=== PATIENT | female | born 1975 | race Caucasian/White ===

== ENCOUNTER → 2020-05-07 | Outpatient (CLI) | payer OTHER ==
--- NOTE | 2020-05-07 16:45 | REP ---
INDICATION: MODERATE PERSISTENT ASTHMA, WHEEZING COMPARISON: None. TECHNIQUE: PA and lateral. FINDINGS: The mediastinum and cardiac silhouette are normal. The lung rader are clear and without acute consolidation, effusion, or pneumothorax. The skeletal structures are intact and normal. IMPRESSION: No acute cardiopulmonary process. <Electronically signed by Jd Sheriff > 05/07/20 [id number]
== END ==
LOC: M RAD 16:16
PROVIDERS: ATTEND Nurse Practitioner Family
DX: J45.40 Moderate persistent asthma, uncomplicated (principal)

== ENCOUNTER → 2020-06-15 | Outpatient (REF) | payer MEDICAID, OTHER ==
[2020-06-15 12:55] LABS: APPEARANCE, URINE CLEAR (CLEAR); BACTERIA, URINE AUTO 1+ (NEGATIVE); BILIRUBIN, URINE AUTO NEGATIVE (NEGATIVE); BLOOD, URINE BLOOD NEGATIVE (NEGATIVE); COLOR, URINE STRAW (YELLOW); GLUCOSE, URINE (UA) AUTO NEGATIVE (NEGATIVE); KETONE, URINE AUTO NEGATIVE (NEGATIVE); LEUKOCYTE ESTERASE, URINE AUTO NEGATIVE (NEGATIVE); NITRITE, URINE AUTO NEGATIVE (NEGATIVE); PROTEIN, URINE AUTO NEGATIVE (NEGATIVE); RBC, URINE AUTO 0 /HPF (0-3); SPECIFIC GRAVITY URINE AUTO 1.003 (1.002-1.035); SQUAMOUS EPITHELIAL CELL UR AU 1 /HPF (0-6); UROBILINOGEN, URINE AUTO 0.2 mg/dL (0.0-2.0); WBC, URINE AUTO 0 /HPF (0-3)
[2020-06-15 14:11] LABS: BASO % 0.3 % (0.0-1.0); EOS # 0.2 10^3/uL (0.0-0.5); EOS % 2.9 % (0.0-3.0); HEMATOCRIT 40.9 % (36.0-47.0); HEMOGLOBIN 12.8 g/dl (12.0-15.5); LYMPH # 1.9 10^3/uL (1.5-5.0); LYMPH % 25.4 % (24.0-44.0); MEAN CORPUSCULAR HEMOGLOBIN 29.8 pg (27.0-33.0); MEAN CORPUSCULAR HGB CONC 31.3 g/dl (32.0-36.5); MEAN CORPUSCULAR VOLUME 95.3 fl (80.0-96.0); MONO # 0.7 10^3/uL (0.0-0.8); MONO % 8.6 % (2.0-8.0); NEUTROPHILS # 4.7 10^3/uL (1.5-8.5); NEUTROPHILS % 62.4 % (36.0-66.0); RED BLOOD COUNT 4.29 10^6/uL (4.00-5.40); WHITE BLOOD COUNT 7.6 10^3/uL (4.0-10.0)
[2020-06-15 14:41] LABS: HEMOGLOBIN A1c 5.3 %
[2020-06-15 14:49] LABS: ALBUMIN 3.8 GM/DL (3.2-5.2); ALT/SGPT 51 U/L (12-78); BILIRUBIN,TOTAL 0.5 MG/DL (0.2-1.0); BLOOD UREA NITROGEN 10 MG/DL (7-18); CALCIUM LEVEL 9.4 MG/DL (8.5-10.1); CARBON DIOXIDE LEVEL 26 MEQ/L (21-32); CHLORIDE LEVEL 105 MEQ/L (98-107); CHOLESTEROL LEVEL 162 MG/DL (<200); CREATININE FOR GFR 0.45 MG/DL (0.55-1.30); FREE T4 1.18 NG/DL (0.76-1.46); GLOMERULAR FILTRATION RATE > 60.0 (>58); GLUCOSE, FASTING 94 MG/DL (70-100); HDL CHOLESTEROL 92 MG/DL (>40); LDL CHOLESTEROL 60 MG/DL (<100); NON-HDL-C 70 MG/DL; POTASSIUM SERUM 3.9 MEQ/L (3.5-5.1); SODIUM LEVEL 137 MEQ/L (136-145); TOTAL PROTEIN 7.2 GM/DL (6.4-8.2); TRIGLYCERIDES LEVEL 49 MG/DL (<150)
[2020-06-15 14:50] LABS: TOTAL 25(OH) VITAMIN D 23.8 NG/ML (30.0-100.0)
[2020-06-15 15:02] LABS: HEPATITIS B SURFACE ANTIGEN NEGATIVE (NEGATIVE)
[2020-06-15 15:29] LABS: HEPATITIS B CORE ANTIBODY IGM NEGATIVE (NEGATIVE)
[2020-06-15 15:30] LABS: HIV 1&2 SCREEN CENTAUR NEGATIVE (NEGATIVE)
[2020-06-15 15:31] LABS: HEPATITIS A ANTIBODY IGM NEGATIVE (NEGATIVE)
[2020-06-15 15:46] LABS: HEPATITIS C VIRUS ABY INDEX > 11.0 INDEX (<0.8)
== END ==
LOC: M LAB REF 12:31
PROVIDERS: ATTEND Nurse Practitioner Family
DX: J45.909 Unspecified asthma, uncomplicated (principal); F41.9 Anxiety disorder, unspecified; E66.9 Obesity, unspecified

== ENCOUNTER → 2020-08-18 | Outpatient (REF) | payer SELFPAY ==
[2020-08-18 16:58] LABS: HEPATITIS B SURFACE ANTIBODY NEGATIVE (POSITIVE); HIV 1&2 SCREEN CENTAUR NEGATIVE (NEGATIVE)
== END ==
LOC: M SFHCPLAZ 12:32
PROVIDERS: ATTEND Internal Medicine Infectious Disease
DX: B18.2 Chronic viral hepatitis C (principal)

== ENCOUNTER → 2021-08-05 | Outpatient (CLI) | payer OTHER ==
[2021-08-05 16:28] LABS: HEMATOCRIT 44.3 % (36.0-47.0); MEAN CORPUSCULAR HEMOGLOBIN 29.7 pg (27.0-33.0); MEAN CORPUSCULAR HGB CONC 31.6 g/dl (32.0-36.5); MEAN CORPUSCULAR VOLUME 94.1 fl (80.0-96.0); RED BLOOD COUNT 4.71 10^6/uL (4.00-5.40); WHITE BLOOD COUNT 7.3 10^3/uL (4.0-10.0)
[2021-08-05 16:37] LABS: ALT/SGPT 55 U/L (12-78); BILIRUBIN,TOTAL 0.4 MG/DL (0.2-1.0); BLOOD UREA NITROGEN 12 MG/DL (7-18); CALCIUM LEVEL 9.7 MG/DL (8.5-10.1); CARBON DIOXIDE LEVEL 30 MEQ/L (21-32); CHLORIDE LEVEL 107 MEQ/L (98-107); CHOLESTEROL LEVEL 190 MG/DL (<200); GLOMERULAR FILTRATION RATE > 60.0 (>58); GLUCOSE, FASTING 101 MG/DL (70-100); HDL CHOLESTEROL 78 MG/DL (>40); POTASSIUM SERUM 4.7 MEQ/L (3.5-5.1); SODIUM LEVEL 141 MEQ/L (136-145); TRIGLYCERIDES LEVEL 80 MG/DL (<150)
[2021-08-05 16:38] LABS: ALBUMIN 3.7 GM/DL (3.2-5.2); CHOLESTEROL RISK RATIO 2.435 (<5); LDL CHOLESTEROL 96 MG/DL (<100); NON-HDL-C 112 MG/DL; TOTAL PROTEIN 7.5 GM/DL (6.4-8.2)
[2021-08-05 17:00] LABS: PLATELET COUNT, AUTOMATED 172 10^3/uL (150-450)
== END ==
LOC: M WUC 11:12
PROVIDERS: ATTEND Physician Assistant
DX: M17.0 Bilateral primary osteoarthritis of knee (principal); E66.9 Obesity, unspecified; J45.40 Moderate persistent asthma, uncomplicated; F10.20 Alcohol dependence, uncomplicated

== ENCOUNTER 2021-09-15 11:28 | Inpatient (IN) | payer OTHER ==
[~2021-09-15] VITALS: Ht 157.5 cm; Wt 88.4 kg
[2021-09-15] MEDS ORDERED: RISP-7 PO (11:43)
[2021-09-15 12:35] LABS: HEMOGLOBIN 13.6 g/dl (12.0-15.5); MEAN CORPUSCULAR HEMOGLOBIN 29.9 pg (27.0-33.0); MEAN CORPUSCULAR HGB CONC 32.4 g/dl (32.0-36.5); MEAN CORPUSCULAR VOLUME 92.3 fl (80.0-96.0); PLATELET COUNT, AUTOMATED 350 10^3/uL (150-450); RED BLOOD COUNT 4.55 10^6/uL (4.00-5.40); WHITE BLOOD COUNT 8.5 10^3/uL (4.0-10.0)
[2021-09-15 12:51] LABS: HCG, SERUM QUALITATIVE NEGATIVE (NEGATIVE)
[2021-09-15 13:01] LABS: RSV AMPLIFICATION NEGATIVE (NEGATIVE)
[2021-09-15 13:21] LABS: ACETAMINOPHEN LEVEL < 2.0 UG/ML (10.0-30.0); ALBUMIN 3.7 GM/DL (3.2-5.2); ALT/SGPT 63 U/L (12-78); BILIRUBIN,DIRECT 0.2 MG/DL (0.0-0.2); BILIRUBIN,TOTAL 0.7 MG/DL (0.2-1.0); BLOOD UREA NITROGEN 13 MG/DL (7-18); CALCIUM LEVEL 9.6 MG/DL (8.5-10.1); CARBON DIOXIDE LEVEL 27 MEQ/L (21-32); CHLORIDE LEVEL 109 MEQ/L (98-107); CREATININE FOR GFR 0.49 MG/DL (0.55-1.30); ETHYL ALCOHOL (ETHANOL) < 0.003 % (0.000-0.010); GLOMERULAR FILTRATION RATE > 60.0 (>58); GLUCOSE, FASTING 100 MG/DL (70-100); POTASSIUM SERUM 4.3 MEQ/L (3.5-5.1); SALICYLATE LEVEL 3.4 MG/DL (5.0-30.0); SODIUM LEVEL 139 MEQ/L (136-145); TOTAL PROTEIN 7.5 GM/DL (6.4-8.2)
[2021-09-15 14:20] LABS: AMPHETAMINES LEVEL URINE NEGATIVE (NEGATIVE); BARBITURATES URINE NEGATIVE (NEGATIVE); BENZODIAZEPINES URINE NEGATIVE (NEGATIVE); CANNABINOIDS URINE NEGATIVE (NEGATIVE); COCAINE METABOLITE URINE NEGATIVE (NEGATIVE); METHADONE URINE NEGATIVE (NEGATIVE); OPIATES URINE NEGATIVE (NEGATIVE); PHENCYCLIDINE URINE NEGATIVE (NEGATIVE)
[2021-09-15] MEDS ORDERED: LORazepam 2 MG TAB PO STA (15:59)
[2021-09-15] MEDS ORDERED: NICO4GUM41 PO (16:03)
[2021-09-15] MEDS ORDERED: TRAZ-252 PO (16:03)
[2021-09-15] MEDS ORDERED: traZODone 50 MG TAB PO PRN (16:25)
[2021-09-15] MEDS ORDERED: PATIENT COMMENT (17:16)
[2021-09-15] MEDS ORDERED: MAALOX 30 ML SUSP *UDC PO PRN (20:00)
[2021-09-15] MEDS ORDERED: MOM 30ML SUSPENSION UDC PO PRN (20:00)
[2021-09-15 20:42] VITALS: BP 125/80
[2021-09-15] MEDS: risperiDONE 0.5 MG TAB PO SCH (22:27)
[2021-09-15] MEDS: traZODone 50 MG TAB PO SCH (22:28)
[2021-09-15] MEDS: OLANZapine ORAL DISINTEGRATING TAB 5MG PO PRN (22:28)
[2021-09-16 06:37] VITALS: BP 124/80
[2021-09-16] MEDS ORDERED: NICOTINE 21MG/24HR 1 EA TRANSDERMAL TD SCH (09:00)
[2021-09-16] MEDS ORDERED: risperiDONE 0.5 MG TAB PO SCH (09:00)
[2021-09-16] MEDS: risperiDONE 0.5 MG TAB PO SCH (09:55)
[2021-09-16] MEDS: NICOTINE 14 MG/24 HR TRANSDERMAL TD SCH (09:56)
[2021-09-16] MEDS ORDERED: LORazepam 2 MG TAB PO PRN (11:35)
[2021-09-16] MEDS: THIAMINE 100 MG TAB PO SCH ×2 (12:23→20:39)
[2021-09-16] MEDS: MULTIVITAMINS/MINERALS THERAP 1 TAB PO SCH (12:23)
[2021-09-16] MEDS: FOLIC ACID 1 MG TAB PO SCH (12:23)
[2021-09-16] MEDS ORDERED: ALBUTEROL SULFATE 2.5 MG/0.5 ML INH NEB SOLN INH PRN (13:55)
[2021-09-16 14:45] VITALS: BP 130/78
[2021-09-16] MEDS: OLANZapine ORAL DISINTEGRATING TAB 5MG PO PRN ×2 (15:03→20:40)
[2021-09-16] MEDS: ACETAMINOPHEN TAB 650MG DOSE (2X325MG) PO PRN (15:05)
[2021-09-16] MEDS: ALBUTEROL 90 MCG/ACT 8GM HFA INHALER INH SCH ×2 (16:47→20:38)
[2021-09-16] MEDS: risperiDONE 1 MG TAB PO SCH (20:39)
[2021-09-16] MEDS: traZODone 50 MG TAB PO SCH (20:39)
[2021-09-17 06:28] VITALS: BP 123/74
[2021-09-17 06:31] VITALS: BP 123/74
[2021-09-17 06:56] LABS: CHOLESTEROL RISK RATIO 1.838 (<5)
[2021-09-17] MEDS: ALBUTEROL 90 MCG/ACT 8GM HFA INHALER INH SCH ×4 (08:56→20:19)
[2021-09-17] MEDS: NICOTINE 14 MG/24 HR TRANSDERMAL TD SCH (08:56)
[2021-09-17] MEDS: THIAMINE 100 MG TAB PO SCH (08:57)
[2021-09-17] MEDS: FOLIC ACID 1 MG TAB PO SCH (08:57)
[2021-09-17] MEDS: MULTIVITAMINS/MINERALS THERAP 1 TAB PO SCH (08:57)
[2021-09-17] MEDS: risperiDONE 1 MG TAB PO SCH ×2 (08:57→20:19)
[2021-09-17] MEDS: OLANZapine ORAL DISINTEGRATING TAB 5MG PO PRN ×3 (11:55→21:33)
[2021-09-17 17:42] VITALS: BP 117/72
[2021-09-17] MEDS: traZODone 50 MG TAB PO SCH (20:19)
[2021-09-17] MEDS: ACETAMINOPHEN TAB 650MG DOSE (2X325MG) PO PRN (20:20)
[2021-09-18 06:51] VITALS: BP 106/54
[2021-09-18] MEDS: ALBUTEROL 90 MCG/ACT 8GM HFA INHALER INH SCH ×4 (09:16→20:00)
[2021-09-18] MEDS: ACETAMINOPHEN TAB 650MG DOSE (2X325MG) PO PRN ×2 (09:17→15:58)
[2021-09-18] MEDS: risperiDONE 1 MG TAB PO SCH ×2 (09:17→20:23)
[2021-09-18] MEDS: NICOTINE 14 MG/24 HR TRANSDERMAL TD SCH (09:17)
[2021-09-18] MEDS: MULTIVITAMINS/MINERALS THERAP 1 TAB PO SCH (09:17)
[2021-09-18] MEDS: OLANZapine ORAL DISINTEGRATING TAB 5MG PO PRN ×3 (09:18→20:23)
[2021-09-18] MEDS ORDERED: PALIPERIDONE PALMITATE 234MG/1.5ML INJ (INVEGA)(FREE PSY INPT ONLY) IM ONE (13:15)
[2021-09-18 17:38] VITALS: BP 121/81
[2021-09-18] MEDS: traZODone 50 MG TAB PO SCH (20:24)
[2021-09-18] MEDS: traZODone 50 MG TAB PO PRN (20:27)
[2021-09-19 06:47] VITALS: BP 106/69
[2021-09-19] MEDS: MULTIVITAMINS/MINERALS THERAP 1 TAB PO SCH (07:55)
[2021-09-19] MEDS: NICOTINE 14 MG/24 HR TRANSDERMAL TD SCH (07:55)
[2021-09-19] MEDS: risperiDONE 1 MG TAB PO SCH ×2 (07:56→20:44)
[2021-09-19] MEDS: ALBUTEROL 90 MCG/ACT 8GM HFA INHALER INH SCH ×4 (07:57→20:43)
[2021-09-19] MEDS: ACETAMINOPHEN TAB 650MG DOSE (2X325MG) PO PRN ×2 (07:59→16:02)
[2021-09-19 18:23] VITALS: BP 149/88
[2021-09-19] MEDS: traZODone 50 MG TAB PO PRN (20:44)
[2021-09-19] MEDS: traZODone 50 MG TAB PO SCH (20:44)
[2021-09-19] MEDS: OLANZapine ORAL DISINTEGRATING TAB 5MG PO PRN (20:45)
[2021-09-19] MEDS: RAMELTEON 8 MG TAB (ROZEREM) PO PRN (22:14)
[2021-09-20 07:17] VITALS: BP 112/67
[2021-09-20] MEDS: MULTIVITAMINS/MINERALS THERAP 1 TAB PO SCH (09:43)
[2021-09-20] MEDS: risperiDONE 1 MG TAB PO SCH (09:43)
[2021-09-20] MEDS: NICOTINE 14 MG/24 HR TRANSDERMAL TD SCH (09:43)
[2021-09-20] MEDS: OLANZapine ORAL DISINTEGRATING TAB 5MG PO PRN (09:43)
[2021-09-20] MEDS: ALBUTEROL 90 MCG/ACT 8GM HFA INHALER INH SCH ×4 (09:43→20:26)
[2021-09-20] MEDS: ACETAMINOPHEN TAB 650MG DOSE (2X325MG) PO PRN ×2 (09:45→19:44)
[2021-09-20] MEDS: BENZTROPINE 1 MG TAB PO SCH ×2 (10:30→20:25)
[2021-09-20] MEDS: PROPRANOLOL 10 MG TAB PO SCH ×3 (10:35→20:25)
[2021-09-20 18:13] VITALS: BP 111/66
[2021-09-20] MEDS: traZODone 50 MG TAB PO PRN (20:24)
[2021-09-20] MEDS: traZODone 50 MG TAB PO SCH (20:24)
[2021-09-20] MEDS: RAMELTEON 8 MG TAB (ROZEREM) PO PRN (20:25)
[2021-09-20] MEDS ORDERED: QUEtiapine FUMARATE 50MG TAB PO SCH (21:00)
[2021-09-21] MEDS ORDERED: PALIPERIDONE PALMITATE 156MG/1ML INJ(INVEGA)(FREE PSY INPT ONLY) IM ONE ×2 (08:15→13:00)
[2021-09-21] MEDS ORDERED: TRAZ-252 PO (08:31)
[2021-09-21] MEDS ORDERED: QUET50TA4 PO (08:31)
[2021-09-21] MEDS ORDERED: INVE234I IM (08:31)
[2021-09-21] MEDS ORDERED: RAME8TAB2 PO (08:31)
[2021-09-21] MEDS ORDERED: NICO14PA TD (08:31)
[2021-09-21] MEDS ORDERED: BENZ-52 PO (08:31)
[2021-09-21] MEDS ORDERED: OLAN5ZYD PO (08:31)
[2021-09-21] MEDS ORDERED: PROP10TA56 PO (08:31)
[2021-09-21] MEDS: MULTIVITAMINS/MINERALS THERAP 1 TAB PO SCH (08:37)
[2021-09-21 08:41] VITALS: BP 109/65
[2021-09-21] MEDS: BENZTROPINE 1 MG TAB PO SCH (08:41)
[2021-09-21] MEDS: ALBUTEROL 90 MCG/ACT 8GM HFA INHALER INH SCH (08:41)
[2021-09-21] MEDS: PROPRANOLOL 10 MG TAB PO SCH (08:41)
[2021-09-21] MEDS: NICOTINE 14 MG/24 HR TRANSDERMAL TD SCH (08:42)
== END 2021-09-21 10:19 | disposition home or self-care (01) | DRG 753 ==
LOC: M ED 11:28 → M PSY 19:58
PROVIDERS: ADMIT Student in an Organized Health Care Education/Training Program; ATTEND Student in an Organized Health Care Education/Training Program
DX: F31.64 Bipolar disorder, current episode mixed, severe, with psychotic features (principal); G25.71 Drug induced akathisia; B00.9 Herpesviral infection, unspecified; R45.850 Homicidal ideations; F12.10 Cannabis abuse, uncomplicated; F60.89 Other specific personality disorders; F90.8 Attention-deficit hyperactivity disorder, other type; J45.909 Unspecified asthma, uncomplicated; F17.200 Nicotine dependence, unspecified, uncomplicated; B19.20 Unspecified viral hepatitis C without hepatic coma; Z62.810 Personal history of physical and sexual abuse in childhood; Z91.51 Personal history of suicidal behavior; Z56.0 Unemployment, unspecified; Z81.8 Family history of other mental and behavioral disorders; Z79.899 Other long term (current) drug therapy; T43.505A Adverse effect of unspecified antipsychotics and neuroleptics, initial encounter

== ENCOUNTER → 2021-11-30 | Outpatient (CLI) | payer OTHER ==
[~2021-11-30] MED LIST: BENZ-52 PO; INVE234I IM; NICO14PA TD; NICO4GUM41 PO; OLAN5ZYD PO; PATIENT COMMENT; PROP10TA56 PO; QUET50TA4 PO; RAME8TAB2 PO; RISP-7 PO; TRAZ-252 PO
[2021-11-30 16:09] LABS: BASO % 0.4 % (0.0-1.0); EOS # 0.2 10^3/uL (0.0-0.5); EOS % 3.3 % (0.0-3.0); HEMATOCRIT 45.3 % (36.0-47.0); HEMOGLOBIN 14.6 g/dl (12.0-15.5); LYMPH # 2.3 10^3/uL (1.5-5.0); LYMPH % 34.4 % (24.0-44.0); MEAN CORPUSCULAR HEMOGLOBIN 29.7 pg (27.0-33.0); MEAN CORPUSCULAR HGB CONC 32.2 g/dl (32.0-36.5); MEAN CORPUSCULAR VOLUME 92.3 fl (80.0-96.0); MONO # 0.6 10^3/uL (0.0-0.8); MONO % 9.2 % (2.0-8.0); NEUTROPHILS # 3.5 10^3/uL (1.5-8.5); NEUTROPHILS % 52.1 % (36.0-66.0); RED BLOOD COUNT 4.91 10^6/uL (4.00-5.40); WHITE BLOOD COUNT 6.7 10^3/uL (4.0-10.0)
[2021-11-30 16:29] LABS: C REACTIVE PROTEIN QUANTITATIV < 0.30 MG/DL (0.00-0.30); RHEUMATOID FACTOR QUANT 22.1 IU/ML (<15.0); URIC ACID 5.7 MG/DL (2.6-6.0)
[2021-11-30 17:19] LABS: ERYTHROCYTE SEDIMENTATION RATE 6 mm/hr (0-20)
[2021-12-02 13:07] LABS: ANTINUCLEAR ANTIBODIES DIRECT Negative (Negative)
== END ==
LOC: M PLALAB 13:30
PROVIDERS: ATTEND Physician Assistant Surgical
DX: M17.0 Bilateral primary osteoarthritis of knee (principal)

== ENCOUNTER → 2022-05-23 | Outpatient (CLI) | payer OTHER ==
[~2022-05-23] MED LIST changes: -BENZ-52 PO; +BENZ1TAB5 PO
[2022-05-23 16:24] LABS: BASO % 0.1 % (0.0-1.0); EOS # 0.3 10^3/uL (0.0-0.5); EOS % 3.5 % (0.0-3.0); HEMATOCRIT 39.7 % (36.0-47.0); HEMOGLOBIN 12.6 g/dl (12.0-15.5); LYMPH % 41.3 % (24.0-44.0); MEAN CORPUSCULAR HEMOGLOBIN 29.3 pg (27.0-33.0); MEAN CORPUSCULAR HGB CONC 31.7 g/dl (32.0-36.5); MEAN CORPUSCULAR VOLUME 92.3 fl (80.0-96.0); MONO # 0.6 10^3/uL (0.0-0.8); MONO % 8.4 % (2.0-8.0); NEUTROPHILS # 3.3 10^3/uL (1.5-8.5); NEUTROPHILS % 46.4 % (36.0-66.0); PLATELET COUNT, AUTOMATED 245 10^3/uL (150-450); WHITE BLOOD COUNT 7.1 10^3/uL (4.0-10.0)
[2022-05-23 16:36] LABS: ERYTHROCYTE SEDIMENTATION RATE 14 mm/hr (0-20)
[2022-05-23 17:00] LABS: URIC ACID 5.7 MG/DL (3.1-7.8)
[2022-05-23 17:01] LABS: C REACTIVE PROTEIN QUANTITATIV < 0.40 MG/DL (<1.0)
[2022-05-23 17:03] LABS: RHEUMATOID FACTOR QUANT 21.3 IU/ML (<14)
[2022-05-23 17:07] LABS: ALBUMIN 3.5 G/DL (3.2-5.2); ALKALINE PHOSPHATASE 75 U/L (46-116); ALT/SGPT 46 U/L (7.0-40); AST/SGOT 31 U/L (<34); BILIRUBIN,TOTAL 0.3 MG/DL (0.3-1.2); BLOOD UREA NITROGEN 11 MG/DL (9-23); CALCIUM LEVEL 8.6 MG/DL (8.5-10.1); CARBON DIOXIDE LEVEL 28 MMOL/L (20-31); CHLORIDE LEVEL 104 MMOL/L (98-107); CREATININE FOR GFR 0.57 MG/DL (0.55-1.30); GLOMERULAR FILTRATION RATE > 60.0 (>58); GLUCOSE, FASTING 78 MG/DL (60-100); POTASSIUM SERUM 4.4 MMOL/L (3.5-5.1); SODIUM LEVEL 138 MMOL/L (136-145); TOTAL PROTEIN 6.9 G/DL (5.7-8.2)
== END ==
LOC: M LAB 15:09
PROVIDERS: ATTEND Physician Assistant Surgical
DX: M17.0 Bilateral primary osteoarthritis of knee (principal); M17.2 Bilateral post-traumatic osteoarthritis of knee

== ENCOUNTER → 2022-05-23 | Outpatient (CLI) | payer OTHER ==
[2022-05-23 16:24] LABS: BASO % 0.3 % (0.0-1.0); EOS # 0.2 10^3/uL (0.0-0.5); EOS % 3.1 % (0.0-3.0); HEMATOCRIT 39.8 % (36.0-47.0); HEMOGLOBIN 12.8 g/dl (12.0-15.5); LYMPH # 3.1 10^3/uL (1.5-5.0); LYMPH % 41.5 % (24.0-44.0); MEAN CORPUSCULAR HEMOGLOBIN 29.7 pg (27.0-33.0); MEAN CORPUSCULAR HGB CONC 32.2 g/dl (32.0-36.5); MEAN CORPUSCULAR VOLUME 92.3 fl (80.0-96.0); MONO # 0.6 10^3/uL (0.0-0.8); NEUTROPHILS # 3.5 10^3/uL (1.5-8.5); NEUTROPHILS % 46.7 % (36.0-66.0); PLATELET COUNT, AUTOMATED 228 10^3/uL (150-450); RED BLOOD COUNT 4.31 10^6/uL (4.00-5.40); WHITE BLOOD COUNT 7.4 10^3/uL (4.0-10.0)
[2022-05-23 17:03] LABS: ALBUMIN 3.5 G/DL (3.2-5.2); ALKALINE PHOSPHATASE 74 U/L (46-116); ALT/SGPT 45 U/L (7.0-40); AST/SGOT 27 U/L (<34); BILIRUBIN,TOTAL 0.3 MG/DL (0.3-1.2); BLOOD UREA NITROGEN 12 MG/DL (9-23); CALCIUM LEVEL 9.4 MG/DL (8.5-10.1); CARBON DIOXIDE LEVEL 29 MMOL/L (20-31); CHLORIDE LEVEL 105 MMOL/L (98-107); CREATININE FOR GFR 0.55 MG/DL (0.55-1.30); GLOMERULAR FILTRATION RATE > 60.0 (>58); GLUCOSE, FASTING 83 MG/DL (60-100); POTASSIUM SERUM 4.5 MMOL/L (3.5-5.1); SODIUM LEVEL 138 MMOL/L (136-145); TOTAL PROTEIN 6.9 G/DL (5.7-8.2)
[2022-05-23 17:05] LABS: FOLATE 23.99 NG/ML (>5.4); VITAMIN B12 LEVEL 436 PG/ML (211-911)
== END ==
LOC: M LAB 15:03
PROVIDERS: ATTEND Physician Assistant
DX: M25.562 Pain in left knee (principal); M25.552 Pain in left hip; B19.20 Unspecified viral hepatitis C without hepatic coma

== ENCOUNTER → 2022-08-02 | Outpatient (CLI) | payer OTHER | LOC: M RAD 06:21 | PROVIDERS: ATTEND Physician Assistant | DX: M17.2 Bilateral post-traumatic osteoarthritis of knee (principal) ==

== ENCOUNTER 2022-08-31 17:26 | Emergency (ER) | payer OTHER ==
[~2022-08-31] VITALS: Ht 160 cm; Wt 119.9 kg
[2022-08-31] MEDS ORDERED: BOOSTRIX VACCINE (TETANUS/DIPHTH/ACEL. PERTUSSIS) 0.5ML SYR IM ONE (18:20)
[2022-08-31] MEDS ORDERED: LIDOCAINE 1% MDV 20ML VIAL As Ordered ONE (18:36)
[2022-08-31] MEDS ORDERED: LIDOCAINE 1% MDV 20ML VIAL SC ONE (18:40)
[2022-08-31] MEDS ORDERED: IBUP-1022 PO (19:01)
[2022-08-31] MEDS ORDERED: SILV1CRE60 TOP (19:01)
[2022-08-31] MEDS ORDERED: CEPH500C PO (19:01)
[2022-08-31] MEDS ORDERED: CEPHALEXIN 500 MG CAP PO ONE (19:05)
[2022-08-31 19:18] VITALS: BP 127/74; TEMP 97; O2SAT 97
== END 2022-08-31 19:21 | disposition home or self-care (01) ==
LOC: M ED 17:26
DX: S50.352A Superficial foreign body of left elbow, initial encounter (principal); W45.8XXA Other foreign body or object entering through skin, initial encounter; Y92.009 Unspecified place in unspecified non-institutional (private) residence as the place of occurrence of the external cause; Y93.89 Activity, other specified; Y99.8 Other external cause status; L55.9 Sunburn, unspecified; J45.909 Unspecified asthma, uncomplicated; J44.9 Chronic obstructive pulmonary disease, unspecified; K21.9 Gastro-esophageal reflux disease without esophagitis; Z79.899 Other long term (current) drug therapy

== ENCOUNTER 2022-12-07 10:16 | Day surgery (SDC) | payer OTHER ==
[~2022-12-07] VITALS: Ht 160 cm; Wt 123.3 kg
[~2022-12-07 10:16] MED LIST changes: +ADV250INH INH; +ALBU2.5V10 INH; +CEPH500C PO; +IBUP-1022 PO; +LATU40TA2 PO; +LIDOCAINE 2% 100MG/5ML SDV (FOR ANES.) As Ordered ONE; +NALT50TA4 PO; +NS 1,000 ML IV ONE; +OLAN1TAB PO; +RITA10TA PO; +SILV1CRE60 TOP; +TRIL1TAB PO; +propofoL 200 MG/20 ML VIAL As Ordered ONE
[2022-12-07 11:58] VITALS: TEMP 98.6
[2022-12-07 12:19] VITALS: BP 112/69; O2SAT 98
== END 2022-12-07 12:40 | disposition home or self-care (01) ==
LOC: M OPP 10:16
PROVIDERS: ATTEND Surgery
DX: Z12.11 Encounter for screening for malignant neoplasm of colon (principal); K63.5 Polyp of colon; K21.9 Gastro-esophageal reflux disease without esophagitis; M17.0 Bilateral primary osteoarthritis of knee; F41.9 Anxiety disorder, unspecified; F31.9 Bipolar disorder, unspecified; J44.9 Chronic obstructive pulmonary disease, unspecified; F17.210 Nicotine dependence, cigarettes, uncomplicated; Z79.899 Other long term (current) drug therapy

== ENCOUNTER → 2023-05-23 | Outpatient (CLI) | payer OTHER ==
[~2023-05-23] MED LIST changes: -LIDOCAINE 2% 100MG/5ML SDV (FOR ANES.) As Ordered ONE; -NS 1,000 ML IV ONE; -RISP-7 PO; +RISP0.5T82 PO; -propofoL 200 MG/20 ML VIAL As Ordered ONE
[2023-05-23 17:39] LABS: BLOOD UREA NITROGEN 13 MG/DL (9-23); CALCIUM LEVEL 9.7 MG/DL (8.5-10.1); CARBON DIOXIDE LEVEL 29 MMOL/L (20-31); CHLORIDE LEVEL 109 MMOL/L (98-107); CHOLESTEROL LEVEL 145 MG/DL (<200); CHOLESTEROL RISK RATIO 2.96 (<5); CREATININE FOR GFR 0.46 MG/DL (0.55-1.30); GLOMERULAR FILTRATION RATE > 60.0 (>58); GLUCOSE, FASTING 108 MG/DL (60-100); HDL CHOLESTEROL 48.9 MG/DL (>40); LDL CHOLESTEROL 84.1 MG/DL (<100); NON-HDL-C 96.1 MG/DL; SODIUM LEVEL 141 MMOL/L (136-145); TRIGLYCERIDES LEVEL 60 MG/DL (<150)
== END ==
LOC: M WUC 12:39
PROVIDERS: ATTEND Physician Assistant
DX: M79.671 Pain in right foot (principal); M79.672 Pain in left foot; R60.0 Localized edema; E66.01 Morbid (severe) obesity due to excess calories; Z68.42 Body mass index [BMI] 45.0-49.9, adult

== ENCOUNTER → 2023-06-16 | Outpatient (REF) | payer OTHER | LOC: M LABWUC 17:31 → M LAB REF 17:31 | PROVIDERS: ATTEND Physician Assistant | DX: E03.9 Hypothyroidism, unspecified (principal) ==